=== PATIENT | female | born 1965 | race Two or more races ===

== ENCOUNTER 2018-02-09 11:54 | Outpatient (CLI) | payer OTHER | END 2018-02-09 12:01 | disposition home or self-care (01) | LOC: MAMO-SONO 11:54 | DX: Z12.31 Encounter for screening mammogram for malignant neoplasm of breast (principal); N60.11 Diffuse cystic mastopathy of right breast; N60.12 Diffuse cystic mastopathy of left breast ==

== ENCOUNTER 2019-04-04 08:53 | Outpatient (CLI) | payer OTHER | END 2019-04-04 09:04 | disposition home or self-care (01) | LOC: MAMO-SONO 08:53 | DX: Z12.39 Encounter for other screening for malignant neoplasm of breast (principal); Z12.31 Encounter for screening mammogram for malignant neoplasm of breast ==

== ENCOUNTER 2020-05-25 13:05 | Outpatient (CLI) | payer OTHER | END 2020-05-25 13:20 | disposition home or self-care (01) | LOC: MAMO-SONO 13:05 | DX: Z12.31 Encounter for screening mammogram for malignant neoplasm of breast (principal); Z13.89 Encounter for screening for other disorder ==

== ENCOUNTER 2024-07-01 05:28 | Day surgery (SDC) | payer OTHER ==
[2024-06-25 15:16] VITALS: BP 137/87
[~2024-07-01] VITALS: Ht 154.9 cm; Wt 67.1 kg
[~2024-07-01 05:28] MED LIST: FARXIGA10 MG PO; SYNTHROID150 MCG PO; TRICOR145 MG PO; ZETIA10 MG PO; ZOCOR20 MG PO
[2024-07-01] MEDS ORDERED: POVIDONE-IODINE 118 ML BOTT TOP ONE ×2 (06:54→20:45)
[2024-07-01] MEDS ORDERED: IBU600 MG PO (09:12)
== END 2024-07-01 13:35 | disposition home or self-care (01) ==
LOC: CIR.AMB 05:28
PROVIDERS: ATTEND Obstetrics & Gynecology Gynecology
DX: N85.8 Other specified noninflammatory disorders of uterus (principal); N95.0 Postmenopausal bleeding; I10 Essential (primary) hypertension; E11.9 Type 2 diabetes mellitus without complications; E03.8 Other specified hypothyroidism